=== PATIENT | male | born 1995 | race Caucasian/White ===

== ENCOUNTER 2017-04-04 19:47 | Emergency (ER) | payer BC ==
[~2017-04-04] VITALS: Ht 188 cm; Wt 64.3 kg
[2017-04-04 19:55] VITALS: TEMP 36.7; Ht 188 cm; Wt 64.3 kg
[2017-04-04] MEDS ORDERED: OXYC1TAB3 PO (20:55)
[2017-04-04] MEDS ORDERED: OXYCODONE IR HOME PACK PO ONE (21:00)
[2017-04-04 21:12] VITALS: BP 151/98; PULSE 70; O2SAT 99
--- NOTE | 2017-04-04 21:37 | DIAGNOSTIC IMAGING REPORT ---
RIGHT ANKLE 3 VIEWS HISTORY: Right ankle pain. R ankle injury COMPARISON: None. FINDINGS: Soft tissue swelling within the right ankle. Nondisplaced fracture the medial malleolus. Tiny avulsion fracture the tip of the lateral malleolus. No dislocation. No radiopaque foreign bodies. IMPRESSION: 1. Nondisplaced fracture at the medial malleolus. 2. Tiny avulsion fracture at the tip of the lateral malleolus. Electronically signed by: Patric Harris M.D. 04/04/2017 9:36 PM Dictated Date/Time: 04/04/2017 9:35 PM
--- NOTE | 2017-04-04 23:05 | EMERGENCY ROOM VISIT NOTE ---
History First contact with patient: 20:03 Chief Complaint: FOOT PAIN Stated Complaint: POSSIBLE BREAK OF RT FOOT History of Present Illness The patient is a 21 year old male who presents to the Emergency Room with complaints of right ankle pain after falling approximately 6 feet while rock climbing in a competition. He reports landing on his heel and twisting the ankle. He denies any heel, foot, leg or knee pain. His pain has persisted for several hours with weightbearing. He denies any paresthesias or numbness of the right lower extremity, and rates his discomfort a 6 out of 10. Review of Systems 10 system review was performed and was negative except for pertinent positives and negatives as indicated in history of present illness Past Medical/Surgical History Medical Problems: (1) Asthma Surgical Problems: (1) No history of previous surgery Family History FH: cancer Social History Smoking Status: Former Smoker Alcohol Use: none Marital Status: single Housing Status: lives with roommate Occupation Status: employed Current/Historical Medications Scheduled PRN Oxycodone Ir (Roxicodone Ir), 1-2 TAB PO Q4H PRN for Pain Physical Exam Vital Signs Date Time Temp Pulse Resp B/P (MAP) Pulse Ox O2 Delivery O2 Flow Rate FiO2 04/04/17 21:12 70 20 151/98 99 04/04/17 19:55 36.7 72 20 159/101 99 Room Air Physical Exam CONSTITUTIONAL: Healthy and well nourished. Alert and oriented X 3 with positive affect. Patient appears in mild discomfort from pain. HEENT: Normocephalic, atraumatic. Pupils equal, round and reactive. NECK: Full active range of motion without discomfort. MUSCULOSKELETAL: Examination of the right ankle shows diffuse edema about the ankle. He is tender over the medial and lateral malleoli. Negative anterior draw. No focal tenderness across the dorsal midfoot, metatarsals, phalanges, calcaneus or Achilles tendon. Pedal pulses are intact. INTEGUMENTARY: No rash or other significant dermatologic conditions noted. NEUROLOGIC: Right foot and toes are sensory intact. Medical Decision & Procedures ER Provider Diagnostic Interpretation: My interpretation of right ankle x-rays confirms a nondisplaced medial malleolus fracture that extends to the tibiotalar joint. Radiologist report is as follows: RIGHT ANKLE 3 VIEWS HISTORY: Right ankle pain. R ankle injury COMPARISON: None. FINDINGS: Soft tissue swelling within the right ankle. Nondisplaced fracture the medial malleolus. Tiny avulsion fracture the tip of the lateral malleolus. No dislocation. No radiopaque foreign bodies. IMPRESSION: 1. Nondisplaced fracture at the medial malleolus. 2. Tiny avulsion fracture at the tip of the lateral malleolus. Medications Administered Medications (Trade) Dose Ordered Sig/Kel Route Start Time Stop Time Status Last Admin Dose Admin Oxycodone HCl (Roxicodone Immediate Rel 5MG Home Pack) 1 homepa UD ONCE PO 04/04/17 21:00 04/04/17 21:01 DC 04/04/17 21:04 1 HOMEPACK ED Course Patient history and physical exam were performed. Nurse's notes were reviewed. Vital signs were reviewed, with an elevated blood pressure in triage. The patient refused any initial analgesics. X-rays of the right ankle confirms a nondisplaced medial malleolus fracture that extends into the tibiotalar joint. A small avulsion fracture of the tip of the lateral malleolus is also noted. An Ortho-Glass posterior splint and crutches were applied. Neurovascular check after splint placement was normal. The mother reports that she will contact [facility] for further reevaluation and management. The patient was encouraged to ice and elevate the ankle for swelling and pain. He may alternate ibuprofen and Tylenol for baseline pain relief. The patient was provided a home pack and written prescription for OxyIR should he need something for breakthrough pain. No drinking alcohol or driving while taking OxyIR. The patient was happy with plan of care, voiced understanding of all discharge instructions, and rated his discomfort a 4 out of 10 at the conclusion of my exam. Medical Decision Impression Primary Impression: Fracture of medial malleolus, right, closed Departure Information Dispostion Home / Self-Care Condition GOOD Prescriptions Oxycodone Ir (Roxicodone Ir) 5 Mg Tab 1-2 TAB PO Q4H Y for Pain, #15 TAB For Initial Treatment Prov: Giovanny Saab PA 04/04/17 Referrals Khai Ralph M.D. Martin, James S., M.D. Forms HOME CARE DOCUMENTATION FORM, IMPORTANT VISIT INFORMATION Patient Instructions My [facility] Additional Instructions Ice and elevate ankle for swelling and pain. Ibuprofen 800 mg and/or Tylenol 1000 mg every 8 hours. You may also alternate these medications for more effective pain relief: Ibuprofen --4 HRS--> Tylenol --4 HRS--> ibuprofen --4 HRS--> Tylenol .... OxyIR 5-10 mg every 4-6 hrs if needed for additional pain relief. Do not drink or drive while taking OxyIR. Keep splint dry. Follow-up with orthopedics for further evaluation and treatment - call tomorrow AM for appointment. Problem Qualifiers Primary Impression: Fracture of medial malleolus, right, closed Encounter type: initial encounter Fracture alignment: nondisplaced Qualified Codes: S82.54XA - Nondisplaced fracture of medial malleolus of right tibia, initial encounter for closed fracture
[2017-04-07] MEDS ORDERED: IBUP-1050 PO (13:09)
== END 2017-04-04 21:15 | disposition home or self-care (01) ==
LOC: C.EDB 19:48 → C.EDD 21:15
DX: S82.54XA Nondisplaced fracture of medial malleolus of right tibia, initial encounter for closed fracture (principal); X50.1XXA Overexertion from prolonged static or awkward postures, initial encounter; Y92.89 Other specified places as the place of occurrence of the external cause; Y93.31 Activity, mountain climbing, rock climbing and wall climbing; J45.909 Unspecified asthma, uncomplicated; Z80.9 Family history of malignant neoplasm, unspecified; Z87.891 Personal history of nicotine dependence

== ENCOUNTER → 2017-04-16 | Day surgery (SDC) | payer BC ==
[2017-04-07 13:10] VITALS: Ht 188 cm; Wt 68.2 kg
[~2017-04-16] VITALS: Ht 188 cm; Wt 68.2 kg
[~2017-04-16] MED LIST: ATROPINE SULFATE 0.1 MG/ML 5ML SYR IV PRN; BUPIVACAINE/EPINEPHRINE 0.25% 1:200,000 30 ML VIAL ONE; BUPIVACAINE/EPINEPHRINE 0.5% MPF 1:200,000 30 ML VIAL ONE; CEFAZOLIN 1000MG IV PUSH 5 ML IV SCH; DEXAMETHASONE SOD INJ 4 MG/ML VIAL ONE; EpHEDrine SULFATE INJ 50 MG/ML AMP IV PRN; FENTANYL CITRATE INJ 50 MCG/1 ML 2 ML VIAL IV PRN; FENTANYL CITRATE INJ 50 MCG/1 ML 2 ML VIAL ONE; IBUP-1050 PO; LACTATED RINGER'S 1000ML 1,000 ML IV SCH; LIDOCAINE HCL 1% 20 ML VIAL ONE; LIDOCAINE HCL 2% 2 ML VIAL (20MG/ML) ONE; MIDAZOLAM HCL 1 MG/ML 2ML VIAL ONE; MoRPHine SULFATE 4 MG/ML 1 ML CARP\\VIAL IV PRN; ONDANSETRON INJ 2 MG/ML 2 ML VIAL IV PRN; ONDANSETRON INJ 2 MG/ML 2 ML VIAL ONE; OXYCODONE/ACETAMINOPHEN 5-325 TAB PO PRN; PROPOFOL IV EMULSION 10 MG/ML 20 ML VIAL IV ONE
--- NOTE | 2017-04-16 06:39 | History & Physical Bridge - SC ---
H&P Re-Evaluation Bridge Note: I have examined the patient, reviewed the History & Physical and in the interval since the performance of the History & Physical I have noted the following changes of clinical significance: No changes noted
--- NOTE | 2017-04-16 08:43 | Discharge Instructions-SurgCtr ---
Discharge Instructions Date of Service Apr 16, 2017. Visit Reason for Visit: Right Ankle Fracture Discharge Discharge Diagnosis / Problem: Status post ORIF Right ankle fracture Discharge Goals Goal(s): Decrease discomfort, Improve function, Increase independence Activity Recommendations Activity Limitations: per Instructions/Follow-up section Exercise/Sports Limitations: as tolerated (Seated Upper body and core) May Resume Sexual Activity: when tolerated Shower/Bathe: may shower/bathe in 3 days Driving or Machine Use: Not while in splint or boot and not while on narcotics Weightbearing Status: Right non-weightbearing Anesthesia . Post Anesthesia Instructions: If you have had General Anesthesia or IV Sedation: * Do not drive today. * Resume driving when surgeon permits. * Do not make important decisions or sign legal documents today. * Call surgeon for: 1. Temperature elevations greater than 101 degrees F. 2. Uncontrollable pain. 3. Excessive bleeding. 4. Persistent nausea and vomiting. 5. Medication intolerance (nausea, vomiting or rash). * For nausea and vomiting use only clear liquids such as: tea, soda, bouillon until nausea subsides, then gradually increase diet as tolerated. * If you have any concerns or questions, call your surgeon's office. If physician is unavailable and it is an emergency, call 911 or go to the nearest emergency room. . Instructions / Follow-Up Instructions / Follow-Up Dr. Camejo in 10-15 days. PT in 3-5 days. Diet Recommendations Home Diet: resume previous diet Procedures Procedures Performed: Open Reduction Internal Fixation Right Ankle Fracture Pending Studies Studies pending at discharge: no School Instructions Return To School: time frame (Within 1 week) Medical Emergencies . Who to Call and When: Medical Emergencies: If at any time you feel your situation is an emergency, please call 911 immediately. . Non-Emergent Contact Non-Emergency issues call your: Surgeon Call Non-Emergent contact if: temperature is above 101.5, your pain is not controlled, wound has increased drainage, wound has increased redness . . "Provider Documentation" section prepared by Delvin Camejo. .
--- NOTE | 2017-04-16 08:45 | [facility] Post Operative Brief Note ---
Immediate Operative Summary Operative Date Apr 16, 2017. Pre-Operative Diagnosis Right Ankle Fracture, medial mal Post-Operative Diagnosis Same Procedure(s) Performed Open Reduction Internal Fixation Right Ankle Fracture Surgeon Dr. Magalys Camejo Spout Liner Helper Surgeon(s) Dr. Jaelyn Cruz Estimated Blood Loss 10ML Findings As above Fluids (cc crystalloids) 1300 Specimens None Drains n/a Anesthesia LMA + Adductor & Popliteal Nerve blocks Complication(s) None Disposition Recovery Room / PACU (Stable)
--- NOTE | 2017-04-16 08:46 | [facility] Operative Report ---
Operative Report Operative Date Apr 16, 2017. Pre-Operative Diagnosis Right Ankle Fracture, medial mal Post-Operative Diagnosis Same Procedure(s) Performed Open Reduction Internal Fixation Right Ankle Fracture, Medial Mal Surgeon Dr. Magalys Camejo Building Certifier Surgeon(s) Dr. Jaelyn Cruz Estimated Blood Loss 10ML Findings Healing right medial malleolar fracture with intra-articular extension. Fluids (cc crystalloids) 1300 Specimens None Drains N/a Anesthesia LMA + Adductor & Popliteal Nerve blocks Complication(s) None Disposition Recovery Room / PACU (stable) Implants 3.5 mm Cannulated Screws, 38 & 40 mm (Synthes). Indications The patient is a 21 year old male who injured their right ankle falling while rock climbing and has an intra-articular medial malleolus fracture. The patient and his family understands the risks of surgery, which include but are not limited to: bleeding, infection, re-operation, damage to nerves and arteries , continued pain, loss of reduction, hardware failure, the need for repeat surgery, decrease level of activity, and DVT. The patient and his family understand all of these instructions and explanations, all of their questions have been satisfactorily addressed. The patient and his family have elected to proceed with surgery and the informed consent was signed. Description of Procedure The patient was taken to the Operating Room and placed in the supine position on the operating table. After general anesthetic was administered a multidisciplinary time-out was performed identifying my initials on the right limb as the correct and operative limb. Prior to the incision being made, 1 gram of intravenous Ancef was given. The right leg was prepped and draped in the standard fashion. The medial malleolus was marked as well as the planned incision centered about the joint line 4 cm in length. The planned incision was injected with a 50:50 mixture of 1% lidocaine and 0.5 % Marcaine with epi for a total of 7 cc. The planned incision was made and carried down to the medial malleolus. The fracture site had already started to heal. Fluoroscopy was brought in to identify the and confirm the medial cortex fracture. The fracture site was debrided with copious irrigation, dental pick, and [place], removing any soft tissue, callus, and hematoma. Two 3.5 mm cannulated screws were placed through previously placed guide wires. The guidewires were placed parallel to each other and perpendicular to the fracture line. There appeared to be some compression and there was no noted intra-articular step-off on the fluoroscopic images. The wounds were copiously irrigated. Final x-rays were obtained. The periosteum and the posterior tibial tendon sheath were closed with 2-0 Vicryl and the subcutaneous layer were closed with 3-0 Vicryl. The skin was closed with 4-0 Monocryl and Dermabond. Once the Dermabond had dried, Steri-Strips were placed over top. The sponge and needle counts were correct. The wounds were covered with 4x4's, ABD's, Steril cast padding, and an AO splint was placed. The patient was awakened and taken to the recovery room in stable condition. Post-op Instructions: The patient will remain NWB for 2 weeks and will then be allowed toe-touch weightbearing. Pain medicine prescription was given pre-operatively to be taken as needed. The patient will follow up with me in 10-15 days. I attest to the content of the Intraoperative Record and any orders documented therein. Any exceptions are noted below.
[2017-04-16 10:02] VITALS: TEMP 36.4
[2017-04-16 10:35] VITALS: BP 105/73; PULSE 50; O2SAT 100
--- NOTE | 2017-04-16 10:42 | Anesthesia Progress Nt - [facility] ---
Anesthesia Post Op Note Date & Time Apr 16, 2017 at 10:42 Vital Signs Pain Intensity: 0 Vital Signs Past 12 Hours Date Time Temp Pulse Resp B/P (MAP) Pulse Ox O2 Delivery O2 Flow Rate FiO2 04/16/17 10:35 50 16 105/73 (84) 100 Room Air 04/16/17 10:02 36.4 55 14 108/67 (81) 100 Room Air 04/16/17 09:43 53 04/16/17 09:43 53 100 04/16/17 09:38 49 11 100 04/16/17 09:38 48 11 04/16/17 09:37 51 12 99 04/16/17 09:37 50 12 04/16/17 09:36 108/67 04/16/17 09:34 36.9 50 12 112/71 99 Room Air 04/16/17 09:32 70 14 96 04/16/17 09:32 72 14 04/16/17 09:31 112/71 04/16/17 09:27 56 13 100 04/16/17 09:27 54 13 04/16/17 09:26 107/74 04/16/17 09:22 73 8 100 04/16/17 09:22 72 8 04/16/17 09:21 65 14 109/71 99 04/16/17 09:21 65 14 04/16/17 09:16 60 16 04/16/17 09:16 62 16 115/69 100 04/16/17 09:11 52 10 04/16/17 09:11 52 10 114/67 100 04/16/17 09:07 117/69 04/16/17 09:06 36.7 70 16 117/69 100 Diffusion Mask 6 04/16/17 07:09 76 11 100 04/16/17 07:09 76 04/16/17 07:06 106/66 04/16/17 07:04 62 04/16/17 07:04 63 10 100 04/16/17 07:01 107/61 04/16/17 07:00 121/67 04/16/17 06:59 102 13 100 04/16/17 06:59 101 04/16/17 06:54 70 04/16/17 06:54 71 0 98 04/16/17 06:26 36.5 73 16 106/73 (84) 97 Room Air Notes Mental Status: alert / awake / arousable, participated in evaluation Pt Amnestic to Procedure: Yes Nausea / Vomiting: adequately controlled Pain: adequately controlled Airway Patency, RR, SpO2: stable & adequate BP & HR: stable & adequate Hydration State: stable & adequate Anesthetic Complications: no major complications apparent Block working well in pacu
== END | disposition home or self-care (01) ==
LOC: X.SURG 06:18
PROVIDERS: ATTEND Orthopaedic Surgery Sports Medicine
DX: S82.51XA Displaced fracture of medial malleolus of right tibia, initial encounter for closed fracture (principal); J45.909 Unspecified asthma, uncomplicated; W17.89XA Other fall from one level to another, initial encounter; Y93.31 Activity, mountain climbing, rock climbing and wall climbing

== ENCOUNTER → 2017-05-27 | Outpatient (CLI) | payer BC, OTHER ==
[~2017-05-27] MED LIST changes: -ATROPINE SULFATE 0.1 MG/ML 5ML SYR IV PRN; -BUPIVACAINE/EPINEPHRINE 0.25% 1:200,000 30 ML VIAL ONE; -BUPIVACAINE/EPINEPHRINE 0.5% MPF 1:200,000 30 ML VIAL ONE; -CEFAZOLIN 1000MG IV PUSH 5 ML IV SCH; -DEXAMETHASONE SOD INJ 4 MG/ML VIAL ONE; -EpHEDrine SULFATE INJ 50 MG/ML AMP IV PRN; -FENTANYL CITRATE INJ 50 MCG/1 ML 2 ML VIAL IV PRN; -FENTANYL CITRATE INJ 50 MCG/1 ML 2 ML VIAL ONE; -LACTATED RINGER'S 1000ML 1,000 ML IV SCH; -LIDOCAINE HCL 1% 20 ML VIAL ONE; -LIDOCAINE HCL 2% 2 ML VIAL (20MG/ML) ONE; -MIDAZOLAM HCL 1 MG/ML 2ML VIAL ONE; -MoRPHine SULFATE 4 MG/ML 1 ML CARP\\VIAL IV PRN; -ONDANSETRON INJ 2 MG/ML 2 ML VIAL IV PRN; -ONDANSETRON INJ 2 MG/ML 2 ML VIAL ONE; -OXYCODONE/ACETAMINOPHEN 5-325 TAB PO PRN; -PROPOFOL IV EMULSION 10 MG/ML 20 ML VIAL IV ONE
== END | disposition home or self-care (01) ==
LOC: C.RDSM 11:30
PROVIDERS: ATTEND Orthopaedic Surgery Sports Medicine
DX: Z09 Encounter for follow-up examination after completed treatment for conditions other than malignant neoplasm (principal)